=== PATIENT | male | born 2000 | race Caucasian/White ===

== ENCOUNTER 2022-01-12 18:45 | Emergency (ER) | payer MEDICAID ==
[~2022-01-12] VITALS: Ht 170.2 cm; Wt 83.0 kg
[2022-01-12 18:52] VITALS: BP 138/89
--- NOTE | 2022-01-12 19:43 | NUR ---
Seen and examine by Yanyd, with orders and carried out
[2022-01-12] MEDS ORDERED: PROCHLORPERAZINE 10 MG/2 ML VIAL IM ONE (19:45)
[2022-01-12] MEDS ORDERED: ACETAMINOPHEN EXTRA STRENGTH 500 MG TAB PO ONE (19:45)
--- NOTE | 2022-01-12 19:45 | NUR ---
Medicated as per Ermds order, tolerated well
--- NOTE | 2022-01-12 19:57 | NUR ---
PT AMBULATED TO BED #6
[2022-01-12 20:45] VITALS: BP 121/79
--- NOTE | 2022-01-12 20:45 | NUR ---
Patient discharged with v/s stable. Written and verbal after care instructions given and explained. Patient verbalized understanding. Ambulatory with steady gait. All questions addressed prior to discharge. Advised to follow up with PMD.
== END 2022-01-12 20:45 | disposition home or self-care (01) ==
LOC: MED 18:45
DX: G43.909 Migraine, unspecified, not intractable, without status migrainosus (principal)
CPT/HCPCS: 96372; 99283; J0780; Q0163